=== PATIENT | male | born 1995 | race American Indian/Alaskan Native ===

== ENCOUNTER 2018-12-29 14:45 | Emergency (ER) | payer BC ==
--- NOTE | 2018-12-29 16:14 | Emergency Department Report ---
Blank Doc - Documentation Documentation: This is a 23-year-old male that presents with headache and nausea sensation for 4 days. This initial assessment diagnostic orders/clinical plan/treatment(s) is/are subject to change based on patient's health status, clinical progression and re- assessment by fellow clinical providers in the ED. Further treatment and workup at subsequent clinical providers discretion. Patient/guardians urged not to elope from ED s their condition may be serious if not clinically assessed and managed. Initial orders include: Fast Track for evaluation.
[2018-12-29 20:01] VITALS: BP 108/66
--- NOTE | 2018-12-29 20:15 | Emergency Department Report ---
HPI - General Chief Complaint: Headache Time Seen by Provider: 12/29/18 16:11 - HPI HPI: 23-year-old -[place] male presents to the emergency department with a five-day history of some generalized weakness and/or fatigue. The patient also has been having some intermittent headaches but says that has since resolved. He had some nausea but did not feel like he could vomit. He made himself vomit and after he did so he said that the headache resolved. He does not have any past medical history. He did not take anything for his symptoms prior to presentation. He denies any visual change, slurred speech, chest pain, shortness breath, fever. He does not have a local primary care physician as he recently moved here from [facility]. He is a tobacco smoker but denies any illicit drug use. ED Past Medical Hx - Past Medical History Previous Medical History?: No - Surgical History Past Surgical History?: No - Social History Smoking Status: Current Every Day Smoker Substance Use Type: None ED Review of Systems ROS: Stated complaint: FATIGUE/HEAD PAIN Other details as noted in HPI Comment: All other systems reviewed and negative Constitutional: weakness, other (fatigue). denies: chills, fever Eyes: denies: eye pain, vision change ENT: denies: ear pain, throat pain Respiratory: denies: cough, shortness of breath Cardiovascular: denies: chest pain, palpitations Gastrointestinal: nausea, vomiting. denies: abdominal pain Genitourinary: denies: dysuria, discharge Musculoskeletal: denies: back pain, arthralgia Skin: denies: rash, lesions Neurological: headache (intermittent but currently resolved). denies: numbness, paresthesias Physical Exam - Physical Exam Vital Signs: Vital Signs 12/29/18 12/29/18 16:11 19:59 Temperature 97.5 F L 97.8 F Pulse Rate 52 L 66 Respiratory 18 16 Rate Blood Pressure 108/58 Blood Pressure 108/66 [Right] O2 Sat by Pulse 100 100 Oximetry Physical Exam: GENERAL: The patient is well-developed well-nourished. HEENT: Normocephalic. Atraumatic. Patient has moist mucous membranes. EYES: Extraocular motions are intact. Pupils are equal and reactive to light bilaterally. No nystagmus. NECK: Supple. Trachea is midline. CHEST/LUNGS: Clear to auscultation. There is no respiratory distress noted. HEART/CARDIOVASCULAR: Regular. There is no tachycardia. There is no obvious murmur. ABDOMEN: Abdomen is soft, nontender. Patient has normal bowel sounds. There is no abdominal distention. SKIN: Skin is warm and dry. NEURO: The patient is awake, alert, and oriented. The patient is cooperative. The patient has no focal neurologic deficits. The patient has normal speech. Cranial nerves II through XII grossly intact. No pronator drift. No dysmetria. MUSCULOSKELETAL: There is no tenderness or deformity. There is no limitation range of motion. There is no evidence of acute injury. Muscle strength 5 out of 5 upper and lower extremities bilaterally. ED Course Vital Signs 12/29/18 12/29/18 16:11 19:59 Temperature 97.5 F L 97.8 F Pulse Rate 52 L 66 Respiratory 18 16 Rate Blood Pressure 108/58 Blood Pressure 108/66 [Right] O2 Sat by Pulse 100 100 Oximetry ED Medical Decision Making - Lab Data Result diagrams: 12/29/18 20:43 12/29/18 20:43 - Medical Decision Making Patient presents to the emergency department with some nonspecific generalized weakness and/or fatigue. He also complains of some type of headache that has currently resolved but was previously there intermittently. He was having some nausea and forced himself to vomit and then the headache resolved. On exam ination the patient has no focal, motor or sensory deficits and his cranial nerves are intact. He looks well-appearing and is sitting comfortably in no acute distress. Patient had normal labs including a CBC, BMP and TSH level. Since he does not have any focal or lateralizing deficits and his headache has resolved, I did not feel that CT imaging of the head was necessary at this time. Vital signs stable throughout his ED course. The patient was given multiple referrals for primary care. He will return to the ER with any worsening of his symptoms or any acute distress. - Differential Diagnosis hypothyroidism, electrolyte abnormalities, anemia, tension headache Critical Care Time: No Critical care attestation.: If time is entered above; I have spent that time in minutes in the direct care of this critically ill patient, excluding procedure time. ED Disposition Clinical Impression: Intermittent headache, Generalized weakness Fatigue Qualifiers: Fatigue type: unspecified Qualified Code(s): R53.83 - Other fatigue Disposition: PAT REG,NO TRIAGE Is pt being admited?: No Condition: Stable Instructions: Acute Headache (ED), Weakness (ED), Fatigue (ED) Additional Instructions: Please follow up with a primary care physician in the next few days if possible. Return to the emergency Department with any worsening of her symptoms or any acute distress. Referrals: NIKOLAI PEDERSON [Primary Care Provider] - 3-5 Days JOSE ARMANDO DECKER MD [Staff Physician] - 3-5 Days [facility] [Outside] - 3-5 Days Time of Disposition: 21:40 - Assessment Assessment Interval: Baseline - Level of Consciousness 1a. Level of Consciousness: alert/keenly responsive - LOC Questions 1b. LOC Questions: answers both correctly - LOC Command 1c. LOC Commands: performs tasks correctly - Best Gaze 2. Best Gaze: normal - Visual 3. Visual: no visual loss - Facial Palsy 4. Facial Palsy: normal symmetrical movement - Motor Arm 5b. Motor Arm Right: no drift 5a. Motor Arm Left: no drift - Motor Leg 6b. Motor Leg Right: no drift 6a. Motor Leg Left: no drift - Limb Ataxia 7. Limb Ataxia: absent - Sensory 8. Sensory: normal - Best Language 9. Best Language: no aphasia - Dysarthria 10. Dysarthria: normal - Extinction and Inattention 11. Extinction/Inattention: no abnormality - Scoring Total Score: 0 Stroke Severity: No Stroke Symptoms
[2018-12-29 20:54] LABS: Basophils % (Auto) 0.3 % (0.0-1.8); Eosinophils % (Auto) 0.5 % (0.0-4.3); Hematocrit 41.7 % (35.5-45.6); Hemoglobin 13.5 gm/dl (11.8-15.2); Lymphocytes # (Auto) 1.3 K/mm3 (1.2-5.4); Lymphocytes % (Auto) 21.9 % (13.4-35.0); Mean Corpuscular HGB Conc 32 % (32-34); Mean Corpuscular Volume 86 fl (84-94); Monocytes # (Auto) 0.6 K/mm3 (0.0-0.8); Monocytes % (Auto) 10.2 % (0.0-7.3); Platelet Count 188 K/mm3 (140-440); Red Blood Count 4.83 M/mm3 (3.65-5.03); Red Cell Distribution Width 15.1 % (13.2-15.2)
[2018-12-29 21:11] LABS: BUN/Creatinine Ratio 14; Blood Urea Nitrogen 10 mg/dL (9-20); Calcium 9.1 mg/dL (8.4-10.2); Hemolysis Index 6
== END 2018-12-29 21:53 | disposition home or self-care (01) ==
LOC: ED 14:45
DX: R53.1 Weakness (principal); R53.83 Other fatigue; R51 Headache; F17.200 Nicotine dependence, unspecified, uncomplicated
CPT/HCPCS: 36415; 80048; 84443; 85025